=== PATIENT | male | born 1965 | race African-American/Black ===

== ENCOUNTER 2019-01-18 05:35 | Emergency (ER) | payer OTHER ==
--- NOTE | 2019-01-18 05:46 | PDOC ---
History of Present Illness - General Stated Complaint: RIB PAIN Time Seen by Provider: 01/18/19 05:41 History Source: Patient, EMS Exam Limitations: No Limitations - History of Present Illness Initial Comments: 01/18/19 05:42 54YOM with h/o MS with balance issues, osteoarthritis, and glaucoma who was BIBEMS s/p GLF at home which he attributes to his normal baseline imbalance while walking. He denies any symptoms preceding the fall, lost his balance at home and fell onto his right side onto a ladder and then fell to the floor. He notes pain to the right anterior lower ribs which worsens with inspiration. He otherwise denies having hit his head or any other part of his body, denies losing consciousness, denies hitting his neck. He was not on the ground for any significant amount of time and this happened just [employer]. He has not taken any medication for the pain. Past History - Past Medical History Allergies/Adverse Reactions: Allergies Allergy/AdvReac Type Severity Reaction Status Date / Time No Known Allergies Allergy Verified 01/18/19 06:37 Home Medications: Ambulatory Orders Oxycodone HCl/Acetaminophen [Percocet 5/325 -] 1 tab PO Q6H #12 tablet MDD 4 05/01 Review of Systems - Review of Systems Able to Perform ROS?: Yes Comments:: 01/18/19 05:45 GEN: no fever, chills, malaise, generalized weakness, or weight change HEENT: no ear pain, sore throat, vision change, or eye pain CV: no chest pain, palpitations, lightheadedness, syncope, or edema RESP: no cough, wheezing, or SOB GI: no abdominal pain, nausea, vomiting, diarrhea, constipation, or white/black/ bloody stool : no dysuria, hematuria, incontinence, retention, bleeding, or discharge MSK: right sided rib pain, no neck/back pain, muscle weakness/pain, or joint swelling/pain NEURO: no headache, seizure, vertigo, numbness, tingling, or focal weakness PSYCH: no substance use, no behavior change SKIN: no jaundice, no rash ROS otherwise negative except as noted in HPI *Physical Exam - Physical Exam Comments: 01/18/19 06:39 GENERAL: a bit uncomfortable but otherwise well-appearing, A/Ox4, no distress, answers questions appropriately HEENT: PERRLA, EOMI, moist mucous membranes NECK/BACK: no midline ttp, no spinal stepoff or deformity, no hematoma, full ROM , neck supple CARDIOVASCULAR: regular rate/rhythm, normal S1S2, no MGR, strong peripheral pulses, capillary refill <2 seconds, extremities wwp, no edema LUNGS/RESPIRATORY: no respiratory distress, CTAB CHEST WALL: right anterior costal margin ttp without stepoff or deformity ( notably there is a prominent rib at the right midclavicular line at the costal margin but this is roughly equal to the anatomy of the contralateral side and thus is most likely normal variant anatomy) GI/ABDOMEN: symmetric [id number], normoactive BS, soft, no ttp, no midline pulsatile masses : no CVA tenderness EXTREMITIES: no muscle atrophy, no acute deformity SKIN: warm and dry, no pallor, no jaundice, no rash, no bruising, no skin breakdown, no cuts, no lesions NEUROLOGICAL: GCS 15, CN II-XII grossly intact, 5/5 strength proximally and distally, no facial droop Medical Decision Making - Medical Decision Making 01/18/19 06:05 54YOM with MS patient p/w mechanical fall and rib pain. Initial Vital Signs Temp Pulse Resp BP Pulse Ox 98.2 F 52 L 18 122/68 100 01/18/19 06:00 01/18/19 06:00 01/18/19 06:00 01/18/19 06:00 01/18/19 06:00 Exam: As noted in Physical Exam section. DDX IBNLT: rib contusion, rib fracture, much less likely PTS, pulmonary or cardiac contusion or other more serious etiology. W/U ordered: CXR, rib series TX ordered: Percocet x2 CXR: nothing acute Rib XR: nothhing acute This patient has gotten significant relief of symptoms while in the ED. On last reassessment, pain is reasonably controlled, and exam is benign. Workup is not concerning for emergency-level pathology at this time. This patient is appropriate for discharge with close outpatient follow up. They are comfortable with this plan and will follow up with their primary care provider in 1-3 days. Rx for #10 Percocet given. Specific return precautions are discussed and they will come back to the ER if necessary. *DC/Admit/Observation/Transfer Diagnosis at time of Disposition: Rib contusion Qualifiers: Encounter type: initial encounter Laterality: right Qualified Code(s): S20.211A - Contusion of right front wall of thorax, initial encounter Fall Qualifiers: Encounter type: initial encounter Qualified Code(s): W19.XXXA - Unspecified fall, initial encounter - Discharge Dispostion Disposition: HOME Condition at time of disposition: Stable Decision to Admit order: No - Prescriptions Prescriptions: Oxycodone HCl/Acetaminophen [Percocet 5/325 -] 1 tab PO Q6H #12 tablet MDD 4 - Referrals - Patient Instructions Printed Discharge Instructions: DI for Rib Contusion Additional Instructions: You were seen in the ER for a fall and a rib injury. We did an exam, imaging studies, and an electrocardiogram, and we did not find any obvious abnormalities. We are not 100% sure whether this is a rib contusion, or a single rib fracture, but both are treated the same way and neither is an emergency at this time. We gave you Percocet here in the ER for pain. After our assessment, we do not believe you are having a medical emergency at this time, and we believe you are safe to go home. Please follow up with your primary care provider in 1-3 days. Call their clinic, tell them you were seen in the er, and tell them you need a follow-up. Please take Tylenol and ibuprofen as directed below for pain. Take this as a scheduled medication for the next 2 days. If you have any new or worsening symptoms, please come back to the ER at any time (24 hours a day). If you are having severe or life threatening symptoms, or symptoms that make it unsafe to drive or have someone drive you, please call 911. When you wake up this morning, take ibuprofen 600 mg. 3 hours later, take Tylenol 650 mg. 3 hours later, take ibuprofen 600 mg. 3 hours later, take Tylenol 650 mg. - Post Discharge Activity
[2019-01-18 06:12] VITALS: BP 122/68; PULSE 52; TEMP 98.2; BMI 22.1
--- NOTE | 2019-01-18 06:41 | PDOC ---
Attending Attestation - Resident Resident Name: Nayana Shore - ED Attending Attestation I have performed the following: I have examined & evaluated the patient, The case was reviewed & discussed with the resident, I agree w/resident's findings & plan - HPI HPI: 01/18/19 06:44 Pt fell and injured his ribs. COmes to make sure that nothing is broken - Physicial Exam PE: 01/18/19 06:45 Agree with resident exam - Medical Decision Making 01/18/19 06:45 Home with percocet. Pt has contusion. We cannot see any rib fx, though he may have a hairline fx in rib #T7
--- NOTE | 2019-01-18 17:57 | EKG ---
Test Reason : Blood Pressure : / mmHG Vent. Rate : 049 BPM Atrial Rate : 049 BPM P-R Int : 162 ms QRS Dur : 086 ms QT Int : 442 ms P-R-T Axes : 074 071 068 degrees QTc Int : 399 ms SINUS BRADYCARDIA OTHERWISE NORMAL ECG NO PREVIOUS ECGS AVAILABLE Confirmed by CHRISTIANE JARRETT MD ([id number]) on 01/18/2019 5:56:54 PM Referred By: Confirmed By:CHRISTIANE JARRETT MD
== END 2019-01-18 07:11 | disposition home or self-care (01) ==
LOC: JER 05:35
DX: S20.211A Contusion of right front wall of thorax, initial encounter (principal); W01.198A Fall on same level from slipping, tripping and stumbling with subsequent striking against other object, initial encounter; Y93.89 Activity, other specified; Y92.038 Other place in apartment as the place of occurrence of the external cause; Y99.8 Other external cause status; G35 Multiple sclerosis; R26.89 Other abnormalities of gait and mobility; M19.90 Unspecified osteoarthritis, unspecified site; H40.9 Unspecified glaucoma
CPT/HCPCS: 71045-TC-FY; 71101-TC-RT-FY; 93005; 93010; 99282-25